=== PATIENT | female | born 1990 | race Caucasian/White ===

== ENCOUNTER 2021-09-28 21:03 | Inpatient (IN) | payer OTHER ==
[~2021-09-28] VITALS: Ht 162.6 cm; Wt 120.9 kg
--- NOTE | 2021-09-28 23:20 | NUR ---
BIBS FOR C/O UPPER ABD PAIN RADIATING TO THE CHEST AND LUE NUMBNESS AND TINGLING SENSATION AFTER DINNER
[2021-09-28] MEDS ORDERED: ONDANSETRON HCL/PF 4 MG/2 ML VIAL IVP ONE (23:30)
[2021-09-28] MEDS ORDERED: IV NS 0.9% 1,000 ML BAG IV ONE (23:30)
[2021-09-28] MEDS ORDERED: ONDANSETRON HCL/PF 4 MG/2 ML VIAL ONE (23:37)
[2021-09-28 23:48] LABS: BASOPHILS % (AUTO) 0.4 % (0.0-2.0); BILIRUBIN,URINE SMALL (NEGATIVE); COLOR,URINE YELLOW (YELLOW); EOSINOPHILS % (AUTO) 0.2 % (0.0-6.0); HEMATOCRIT 41 % (33-45); HEMOGLOBIN 13.8 g/dL (11.5-14.8); LEUKOCYTE ESTERASE ,URINE TRACE (NEGATIVE); LYMPHOCYTES # (AUTO) 1.1 K/uL (0.8-4.8); LYMPHOCYTES % (AUTO) 8.4 % (20.0-44.0); MEAN CORPUSCULAR HGB CONC 33 g/dl (31.0-36.0); MEAN CORPUSCULAR VOLUME 87 fL (82-100); NEUTROPHILS # (AUTO) 11.4 K/uL (1.8-8.9); NITRITE, URINE NEGATIVE (NEGATIVE); PLATELET COUNT (AUTO) 330 K/uL (150-450); PROTEIN,URINE NEGATIVE (NEGATIVE); RED BLOOD CELL COUNT(AUTO) 4.78 MIL/uL (4.0-5.2); UGLUCOSE NEGATIVE (NEGATIVE); WHITE BLOOD COUNT (AUTO) 13.5 K/uL (4.3-11.0)
[2021-09-28 23:54] LABS: BACTERIA,URINE Many /HPF (None Seen); RBC,URINE 0-2 /HPF (0-2); SQUAMOUS EPITHELIAL CELL,UR Many /HPF (None Seen)
[2021-09-28 23:56] LABS: CALCIUM, SERUM 9.4 mg/dL (8.5-10.1); CARBON DIOXIDE 29 mmol/L (21-32); CHLORIDE 99 mmol/L (98-107); CREATININE 0.9 mg/dL (0.6-1.3); GLUCOSE 106 mg/dL (74-106); POTASSIUM 3.8 mmol/L (3.5-5.1); SODIUM SERUM 134 mmol/L (136-145); UREA NITROGEN, BLOOD 12 mg/dL (7-18)
[2021-09-29 00:07] LABS: ALANINE AMINOTRANSFERASE 842 U/L (12-78); ALBUMIN 4.1 g/dL (3.4-5.0); ALKALINE PHOSPHATASE 108 U/L (46-116); ASPARTATE AMINOTRANSFERASE 1421 U/L (15-37); BILIRUBIN,DIRECT 0.9 mg/dL (0.0-0.2); BILIRUBIN,TOTAL 1.4 mg/dL (0.2-1.0); TOTAL PROTEIN, SERUM 8.7 g/dL (6.4-8.2)
[2021-09-29 00:33] LABS: LIPASE > 1500 U/L (73-393)
--- NOTE | 2021-09-29 01:42 | NUR ---
COVID TESTV SWABBED AND SENT TO LAB
[2021-09-29] MEDS ORDERED: CEFTRIAXONE 1GM BAG (ER ONLY) 50 ML IV ONE (01:52)
[2021-09-29] MEDS: CEFTRIAXONE 1 G in IV D5W 50 ML IV SCH (01:56)
[2021-09-29] MEDS ORDERED: FLAGYL/NS RTU 500 MG/100 ML PIGGYBACK IV ONE (02:00)
--- NOTE | 2021-09-29 02:00 | NUR ---
VERBAL ORDER PER MD ONE LITER NS WIDE OPEN ADMINISTERRED VIA 18G RAC. END TIME 0300.
[2021-09-29] MEDS ORDERED: METRONIDAZOLE 500MG/ NS 100ML 100 ML IV ONE (02:52)
[2021-09-29] MEDS ORDERED: ONDANSETRON HCL/PF 4 MG/2 ML VIAL IVP PRN (03:30)
[2021-09-29] MEDS ORDERED: ZOLPIDEM TARTRATE 5 MG TABLET PO PRN (03:30)
[2021-09-29] MEDS ORDERED: MAGNESIUM HYDROXIDE 30 ML UDC PO PRN (03:30)
[2021-09-29] MEDS ORDERED: ACETAMINOPHEN 325 MG TABLET PO PRN (03:30)
[2021-09-29] MEDS ORDERED: MORPHINE SULFATE INJ 4 MG/ML DISP.SYRIN ONE (05:14)
[2021-09-29] MEDS ORDERED: ONDANSETRON HCL/PF 4 MG/2 ML VIAL ONE (05:14)
[2021-09-29] MEDS ORDERED: MORPHINE SULFATE INJ 2 MG/ML DISP.SYRIN ONE (05:16)
[2021-09-29] MEDS: IV NS 0.9% 1,000 ML IV PRN ×2 (05:26→10:16)
[2021-09-29] MEDS: MORPHINE SULFATE INJ 2 MG/ML DISP.SYRIN IV PRN ×3 (05:27→22:26)
--- NOTE | 2021-09-29 07:46 | NUR ---
THE PATIENT IS RECEIVED IN ER BED #10. THE PATIENT IS ALERT AND ORIENTED X4. DENIES PAIN. IN ROOM AIR AND DENIES SOB. RESPIRATION REGULAR AND UNLABORED. ATTACHED TO THE MONITOR. WARM BLANKET PROVIDED FOR COMFORT. WILL CONTINUE TO MONITOR THE PATIENT.
--- NOTE | 2021-09-29 08:56 | NUR ---
GOT BED 315
[2021-09-29] MEDS ORDERED: PANTOPRAZOLE 40 MG VIAL ONE (08:59)
[2021-09-29] MEDS: PANTOPRAZOLE 40 MG VIAL IV SCH (09:03)
--- NOTE | 2021-09-29 09:09 | NUR ---
REPORT GIVEN TO NURSE HARRIS FOR ROLLY
--- NOTE | 2021-09-29 09:35 | NUR ---
THE PATIENT IS TRANSFERED TO ROOM 315 IN STABLE CONDITION AND PER POLICY.
[2021-09-29 10:00] VITALS: BP 147/77
[2021-09-29 16:00] VITALS: BP 139/72
--- NOTE | 2021-09-29 19:15 | NUR ---
MS RN OPENING NOTES RECEIVED PATIENT LAYING AWAKE IN BED. A/OX4. PATIENT WITH REGULAR AND UNLABORED BREATHING ON ROOM AIR TOLERATED WELL. NO SIGNS AND SYMPTOMS OF DISTRESS NOTED. NO COMPLAINS OF PAIN OR DISCOMFORT AT THIS TIME. IV ACCESS LFA #20 RUNNING NS @ 75 ML/HR. IV ACCESS PATENT AND INTACT. SAFETY PRECAUTIONS ENFORCED WITH BED LOCKED AND AT LOWEST POSITION. CALL LIGHT WITHIN REACH AT ALL TIMES WILL CONTINUE TO MONITOR PATIENT.
[2021-09-29 20:00] VITALS: BP 104/68
--- NOTE | 2021-09-29 22:27 | NUR ---
MS RN NOTES PATIENT COMPLAINED OF PAIN. ADMINISTERED MORPHINE ORDERED BY HOSPITALIST.
[2021-09-30] MEDS: CEFTRIAXONE 1 G in IV D5W 50 ML IV SCH (01:20)
[2021-09-30 06:06] LABS: BASOPHILS % (AUTO) 0.2 % (0.0-2.0); EOSINOPHILS % (AUTO) 1.6 % (0.0-6.0); HEMATOCRIT 38 % (33-45); HEMOGLOBIN 12.9 g/dL (11.5-14.8); LYMPHOCYTES # (AUTO) 1.5 K/uL (0.8-4.8); LYMPHOCYTES % (AUTO) 14.3 % (20.0-44.0); MEAN CORPUSCULAR HGB CONC 34 g/dl (31.0-36.0); MEAN CORPUSCULAR VOLUME 87 fL (82-100); MONOCYTES # (AUTO) 0.6 K/uL (0.1-1.30); NEUTROPHILS # (AUTO) 7.9 K/uL (1.8-8.9); NEUTROPHILS % (AUTO) 77.9 % (43.0-81.0); PLATELET COUNT (AUTO) 240 K/uL (150-450); WHITE BLOOD COUNT (AUTO) 10.1 K/uL (4.3-11.0)
[2021-09-30] MEDS: MORPHINE SULFATE INJ 2 MG/ML DISP.SYRIN IV PRN (06:44)
[2021-09-30 06:49] LABS: ALBUMIN 3.2 g/dL (3.4-5.0); BILIRUBIN,DIRECT 0.4 mg/dL (0.0-0.2); BILIRUBIN,TOTAL 0.8 mg/dL (0.2-1.0); CALCIUM, SERUM 8.1 mg/dL (8.5-10.1); CREATININE 0.7 mg/dL (0.6-1.3); MAGNESIUM 2.2 mg/dL (1.8-2.4); PHOSPHORUS 3.4 mg/dL (2.5-4.9); POTASSIUM 3.5 mmol/L (3.5-5.1); TOTAL PROTEIN, SERUM 7.1 g/dL (6.4-8.2)
--- NOTE | 2021-09-30 07:39 | NUR ---
RN OPENING NOTES Patient seen comfortably lying in bed, breathing even and unlabored, no SOB, no apparent distress noted, denies any pain or discomfort at this time, no grimacing. Call light left within reach, safety precautions in place, brakes locked, side rails up X 2, will monitor closely for any changes.
--- NOTE | 2021-09-30 07:45 | NUR ---
MS RN CLOSING NOTES PATIENT STILL LAYING AWAKE IN BED. A/OX4. PATIENT WITH REGULAR AND UNLABORED BREATHING ON ROOM AIR TOLERATED WELL. NO SIGNS AND SYMPTOMS OF DISTRESS NOTED. NO COMPLAINS OF PAIN OR DISCOMFORT AT THIS TIME. IV ACCESS LFA #20 RUNNING NS @ 75 ML/HR. IV ACCESS PATENT AND INTACT. SAFETY PRECAUTIONS ENFORCED WITH BED LOCKED AND AT LOWEST POSITION. CALL LIGHT WITHIN REACH AT ALL TIMES WILL ENDORSE ROLLY TO DAY SHIFT NURSE.
[2021-09-30 08:00] VITALS: BP 130/74
[2021-09-30] MEDS: PANTOPRAZOLE 40 MG VIAL IV SCH (08:12)
[2021-09-30] MEDS: ENSURE CLEAR 237 ML LIQUID (MIX BERRY) PO SCH (12:46)
[2021-09-30] MEDS: IV NS 0.9% 1,000 ML IV PRN (13:15)
[2021-09-30 16:00] VITALS: BP 114/51
--- NOTE | 2021-09-30 18:42 | NUR ---
RN CLOSING NOTES Patient in bed, no apparent distress noted, no SOB, breathing even and unlabored. No nausea, no vomiting, abdominal bowel sound present in all quadrant, no grimacing when abdomen palpated. All due medications given per MD order, tolerating well. All needs attended, kept clean and dry, safety precautions in place, brakes locked, side rails up X 2, call light left within reach, will endorse to next shift for continuity of care.
--- NOTE | 2021-09-30 19:00 | NUR ---
MS RN OPENING NOTE RECEIVED PT IN BED, AWAKE AND RESTING. PT IS A/O X4. STABLE ON ROOM AIR. NO SOB OR RESPIRATORY DISTRESS NOTED, NO C/O PAIN AT THIS TIME. RESPIRATIONS EVEN AND UNLABORED. IV ACCESS NOTED IN LEFT FOREARM G# 20. IV IS INTACT, PATENT, AND FLUSHING WELL. NS INFUSING @ 75ML/HR. FAMILY AT THE BEDSIDE. FALL AND SAFETY MEASURES IN PLACE AND MAINTAINED AT ALL TIMES. BED ALARM ON, BED IN LOW AND LOCKED POSITION, HOB ELEVATED TO SEMI FOWLERS POSITION, CALL LIGHT AND TABLE WITHIN REACH. SIDE RAILS UP X2. WILL CONTINUE WITH PLAN OF CARE.
[2021-10-01] MEDS: CEFTRIAXONE 1 G in IV D5W 50 ML IV SCH (02:06)
[2021-10-01 05:59] LABS: BASOPHILS % (AUTO) 0.3 % (0.0-2.0); EOSINOPHILS % (AUTO) 2.1 % (0.0-6.0); HEMATOCRIT 36 % (33-45); HEMOGLOBIN 12.2 g/dL (11.5-14.8); LYMPHOCYTES # (AUTO) 1.8 K/uL (0.8-4.8); LYMPHOCYTES % (AUTO) 16.7 % (20.0-44.0); MEAN CORPUSCULAR HGB CONC 34 g/dl (31.0-36.0); MEAN CORPUSCULAR VOLUME 86 fL (82-100); MONOCYTES # (AUTO) 0.8 K/uL (0.1-1.30); MONOCYTES % (AUTO) 7.1 % (2.0-12.0); NEUTROPHILS # (AUTO) 8.1 K/uL (1.8-8.9); NEUTROPHILS % (AUTO) 73.8 % (43.0-81.0); PLATELET COUNT (AUTO) 248 K/uL (150-450); RED BLOOD CELL COUNT(AUTO) 4.16 MIL/uL (4.0-5.2); WHITE BLOOD COUNT (AUTO) 10.9 K/uL (4.3-11.0)
--- NOTE | 2021-10-01 06:30 | NUR ---
MS RN CLOSING NOTE PT IS IN BED RESTING, EASY TO AROUSE. A/O X4. STABLE ON ROOM AIR. NO SOB, NO S/S OF RESPIRATORY DISTRESS.PT IS AMBULATORY. IV ACCESS IS INTACT, PATENT, AND FLUSHING WELL. NS INFUSING @75ML/HR. ALL NEEDS HAVE BEEN MET. ALL CARE, NEEDS, MEDICATIONS, AND TREATMENT ADMINISTERED ANTICIPATED PER ORDER.SAFETY, SEIZURE, AND ASPIRATION PRECAUTIONS MAINTAINED AT ALL TIMES. BED IN LOWEST, LOCKED POSITION. HOB ELEVATED, SIDE RAILS UP X2. CALL LIGHT AND TABLE WITHIN REACH. WILL ENDORSE TO ONCOMING NURSE FOR ROLLY.
[2021-10-01] MEDS: IV NS 0.9% 1,000 ML IV PRN (06:35)
[2021-10-01 07:12] LABS: CALCIUM, SERUM 7.9 mg/dL (8.5-10.1); CREATININE 0.6 mg/dL (0.6-1.3); MAGNESIUM 2.2 mg/dL (1.8-2.4); PHOSPHORUS 3.2 mg/dL (2.5-4.9); POTASSIUM 3.6 mmol/L (3.5-5.1)
[2021-10-01 07:26] LABS: ALBUMIN 2.9 g/dL (3.4-5.0); BILIRUBIN,DIRECT 0.2 mg/dL (0.0-0.2); BILIRUBIN,TOTAL 0.5 mg/dL (0.2-1.0); TOTAL PROTEIN, SERUM 6.9 g/dL (6.4-8.2)
--- NOTE | 2021-10-01 07:35 | NUR ---
RN OPENING NOTES Patient seen comfortably lying in bed, no apparent distress noted, no SOB, respirations even and unlabored, denies any pain or discomfort at this time, no grimacing. Safety precautions in place, brakes locked, call light left within reach, side rails up X 2, will monitor closely for any changes.
[2021-10-01 08:00] VITALS: BP 117/66
[2021-10-01] MEDS: ENSURE CLEAR 237 ML LIQUID (MIX BERRY) PO SCH (08:40)
[2021-10-01] MEDS: PANTOPRAZOLE 40 MG VIAL IV SCH (08:41)
[2021-10-01 16:00] VITALS: BP 102/59
--- NOTE | 2021-10-01 18:15 | NUR ---
RN CLOSING NOTES Patient in bed, no SOB, respirations even and unlabored, no nausea, no vomiting, abdominal bowel sound present in all quadrant, no grimacing when abdomen palpated. All due medications given per MD order, tolerating well. Kept clean and dry, all needs attended, call light left within reach, safety precautions in place, brakes locked, side rails up X 2, will endorse to next shift for continuity of care.
[2021-10-01 20:00] VITALS: BP 123/73
[2021-10-02] MEDS: CEFTRIAXONE 1 G in IV D5W 50 ML IV SCH (02:28)
[2021-10-02] MEDS: IV NS 0.9% 1,000 ML IV PRN (02:29)
[2021-10-02 08:00] VITALS: BP 120/70
--- NOTE | 2021-10-02 08:00 | NUR ---
ms rn received on bed, awake,alert,oriented x4,not in any form of distress, respirations even and unlabored,no sob noted, lungs are clear,abdomen soft,positive bowel sounds, denies pain at this time,all needs attended.
[2021-10-02 08:17] LABS: BASOPHILS % (AUTO) 0.4 % (0.0-2.0); EOSINOPHILS % (AUTO) 2.4 % (0.0-6.0); HEMATOCRIT 35 % (33-45); LYMPHOCYTES # (AUTO) 2.5 K/uL (0.8-4.8); LYMPHOCYTES % (AUTO) 26.6 % (20.0-44.0); MEAN CORPUSCULAR HGB CONC 34 g/dl (31.0-36.0); MEAN CORPUSCULAR VOLUME 87 fL (82-100); MONOCYTES # (AUTO) 0.6 K/uL (0.1-1.30); MONOCYTES % (AUTO) 6.6 % (2.0-12.0); PLATELET COUNT (AUTO) 231 K/uL (150-450); RED BLOOD CELL COUNT(AUTO) 4.06 MIL/uL (4.0-5.2); WHITE BLOOD COUNT (AUTO) 9.3 K/uL (4.3-11.0)
[2021-10-02 08:42] LABS: ALBUMIN 2.8 g/dL (3.4-5.0); BILIRUBIN,DIRECT 0.1 mg/dL (0.0-0.2); BILIRUBIN,TOTAL 0.3 mg/dL (0.2-1.0); CALCIUM, SERUM 8.2 mg/dL (8.5-10.1); CREATININE 0.6 mg/dL (0.6-1.3); PHOSPHORUS 3.5 mg/dL (2.5-4.9); POTASSIUM 3.4 mmol/L (3.5-5.1); TOTAL PROTEIN, SERUM 6.6 g/dL (6.4-8.2)
[2021-10-02] MEDS: PANTOPRAZOLE 40 MG VIAL IV SCH (09:00)
[2021-10-02] MEDS: ENSURE CLEAR 237 ML LIQUID (MIX BERRY) PO SCH (09:03)
--- NOTE | 2021-10-02 09:55 | NUR ---
ms wood breakfast served,due meds given,tolerated well.
[2021-10-02] MEDS ORDERED: POTASSIUM CHLORIDE 20 MEQ POWDER PACKET PO ONE (11:00)
--- NOTE | 2021-10-02 11:30 | NUR ---
ms rn was seen by rafi traore, to be d/c if blood culture negative.
--- NOTE | 2021-10-02 11:45 | NUR ---
ms rn called lab. still updating their system.
[2021-10-02 16:00] VITALS: BP 116/91
--- NOTE | 2021-10-02 16:09 | NUR ---
ms rn still blood cx result not in, might as well go home in am.
--- NOTE | 2021-10-02 17:00 | NUR ---
ms rn d/c instructions given, patient went home accomplnied by her mom,all needs attended.
== END 2021-10-02 18:15 | disposition home or self-care (01) | DRG 439 ==
LOC: ER 21:07 → TRANSITION 09-29 01:49 → MED 09-29 09:09
PROVIDERS: ADMIT Student in an Organized Health Care Education/Training Program; ATTEND Student in an Organized Health Care Education/Training Program
DX: K85.10 Biliary acute pancreatitis without necrosis or infection (principal); E87.1 Hypo-osmolality and hyponatremia; Z20.822 Contact with and (suspected) exposure to COVID-19; K76.0 Fatty (change of) liver, not elsewhere classified; Z91.018 Allergy to other foods; Z83.3 Family history of diabetes mellitus; K80.20 Calculus of gallbladder without cholecystitis without obstruction
CPT/HCPCS: 36415; 71045-TC; 74181-TC; 76705-TC; 80048-TC; 80061-TC; 80074; 80076-TC; 81001; 83690-TC; 83735-TC; 84100-TC; 84703-TC; 85025-TC; 87040-TC; 87081-TC; 87086-TC; C9113; G0378; J0696; J2270; J2405; J7030; J7060